=== PATIENT | female | born 1975 | race African-American/Black ===

== ENCOUNTER 2018-05-30 11:01 | Emergency (ER) | payer BC ==
[2018-05-30 11:14] VITALS: BP 126/88
--- NOTE | 2018-05-30 12:07 | UC ---
UC General HPI - HPI Summary HPI Summary: Patient has had 3 days of left arm pain that she awoke with does not change with activity, no nausea, vomiting, fatigue, SOB - History of Current Complaint Chief Complaint: UCGeneralIllness Stated Complaint: HIGH BLOOD PRESSURE, AND ARM PAIN Time Seen by Provider: 05/30/18 11:58 Hx Obtained From: Patient Hx Last Menstrual Period: 07/15/15 Onset/Duration: Gradual Onset, Lasting Days - 3 Timing: Constant Onset Severity: Mild Current Severity: Mild Pain Intensity: 3 Pain Location at: left trap. muscles in neck radiating in to shoulder and arm - Allergy/Home Medications Allergies/Adverse Reactions: Allergies Allergy/AdvReac Type Severity Reaction Status Date / Time Sulfa (Sulfonamide Allergy See Comment Verified 05/30/18 11:14 Antibiotics) Home Medications: Home Medications NK [No Home Medications Reported] 05/30/18 [History Confirmed 05/30/18] PMH/Surg Hx/FS Hx/Imm Hx Previously Healthy: Yes - Surgical History Surgical History: Yes Surgery Procedure, Year, and Place: D+C - Family History Known Family History: Positive: None - Social History Occupation: Employed Full-time Lives: With Family Alcohol Use: None Substance Use Type: None Smoking Status (MU): Never Smoked Tobacco Household Exposure Type: Cigarettes Review of Systems Constitutional: Negative Skin: Negative Eyes: Negative ENT: Negative Respiratory: Negative Cardiovascular: Negative Gastrointestinal: Negative Genitourinary: Negative Motor: Negative Neurovascular: Negative Musculoskeletal: Negative Neurological: Negative Psychological: Negative Is Patient Immunocompromised?: No All Other Systems Reviewed And Are Negative: Yes Physical Exam Triage Information Reviewed: Yes Appearance: Well-Appearing, No Pain Distress, Well-Nourished Vital Signs: Initial Vital Signs Temp 98.2 F 05/30/18 11:06 Pulse 82 05/30/18 11:06 Resp 18 05/30/18 11:06 BP 126/88 05/30/18 11:06 Pulse Ox 100 05/30/18 11:06 Vital Signs Reviewed: Yes Eye Exam: Normal Eyes: Positive: Conjunctiva Clear ENT Exam: Normal ENT: Positive: Normal ENT inspection, Hearing grossly normal, Pharynx normal, TMs normal. Negative: Nasal congestion, Nasal drainage, Trismus, Muffled voice , Hoarse voice Dental Exam: Normal Neck exam: Normal Neck: Positive: Supple, Nontender, No Lymphadenopathy Respiratory Exam: Normal Respiratory: Positive: Chest non-tender, Lungs clear, Normal breath sounds, No respiratory distress, No accessory muscle use Cardiovascular Exam: Normal Abdominal Exam: Normal Abdomen Description: Positive: Nontender, No Organomegaly, Soft Bowel Sounds: Positive: Present Musculoskeletal Exam: Normal Musculoskeletal: Positive: Strength Intact, ROM Intact, No Edema Neurological Exam: Normal Neurological: Positive: Alert, Muscle Tone Normal Psychological Exam: Normal Skin Exam: Normal Diagnostics - EKG Cardiac Rate: NL Cardiac Rhythm: Sinus: Normal Ectopy: None ST Segment: Normal Course/Dx - Course Course Of Treatment: reviewed case with Dr. Ivy mora d/c to home follow with pcp, to ED should symptoms return - Differential Dx - Multi-Symptom Provider Diagnoses: muscular skelatal pain left upper arm and shoulder Discharge - Sign-Out/Discharge Documenting (check all that apply): Patient Departure - Discharge Plan Condition: Stable Disposition: HOME Patient Education Materials: Neck Pain (ED), Warm Compress or Soak (ED) Referrals: Shabana Jennings MD [Medical Doctor] - 1 Week Additional Instructions: Per institutional requirements, I have reviewed the chart, however, I was not consulted specifically or made aware of this patient by the above midlevel provider. I did not personally evaluate, interact with , or disposition this patient. - Billing Disposition and Condition Condition: STABLE Disposition: Home
== END 2018-05-30 12:26 | disposition home or self-care (01) ==
LOC: UCEAST 11:01
DX: M79.622 Pain in left upper arm (principal); M25.512 Pain in left shoulder; Z88.2 Allergy status to sulfonamides
CPT/HCPCS: 93005; 99211; G0463

== ENCOUNTER 2019-02-10 14:26 | Emergency (ER) | payer BC ==
--- NOTE | 2019-02-10 14:29 | UC ---
Skin Complaint HPI - HPI Summary HPI Summary: 43 yo female presents with tick bite to right upper thigh noticed this morning. She removed the tick and called her doctor's office and they recommended she be evaluated. She is unsure how long the tick was attached for. No current symptoms - History of Current Complaint Time Seen by Provider: 02/10/19 14:27 Stated Complaint: TICK RT UPPER LEG Hx Obtained From: Patient Hx Last Menstrual Period: 07/15/15 Onset/Duration: Sudden Onset Current Severity: None - Allergy/Home Medications Allergies/Adverse Reactions: Allergies Allergy/AdvReac Type Severity Reaction Status Date / Time Sulfa (Sulfonamide Allergy See Comment Verified 02/10/19 14:37 Antibiotics) Home Medications: Home Medications Albuterol HFA INHALER* [Ventolin HFA Inhaler*] 1 puff INH Q4H PRN 02/10/19 [ History Confirmed 02/10/19] Cetirizine HCl [Zyrtec] 10 mg PO DAILY PRN 02/10/19 [History Confirmed 02/10/19] Ferrous Sulfate 325 mg PO BID 02/10/19 [History Confirmed 02/10/19] Fluticasone HFA 110 mcg(NF) [Flovent HFA 110 mcg(NF)] 1 puff INH BID 02/10/19 [ History Confirmed 02/10/19] PMH/Surg Hx/FS Hx/Imm Hx - Additional Past Medical History Additional PMH: None - Surgical History Surgical History: Yes Surgery Procedure, Year, and Place: D+C - Family History Known Family History: Positive: None - Social History Occupation: Employed Full-time Lives: With Family Alcohol Use: None Substance Use Type: None Smoking Status (MU): Never Smoked Tobacco Household Exposure Type: Cigarettes Review of Systems All Other Systems Reviewed And Are Negative: Yes Constitutional: Positive: Negative Skin: Positive: Other - Tick bite leg Respiratory: Positive: Negative Cardiovascular: Positive: Negative Neurovascular: Positive: Negative Neurological: Positive: Negative Psychological: Positive: Negative Physical Exam - Summary Physical Exam Summary: GENERAL: NAD. WDWN. No pain distress. SKIN: Right upper anterior thigh there is a 5mm diameter of mild erythema and edema with central 1mm area of superficial skin loss. No streaking, bleeding, or drainage. NECK: Supple. Nontender. No lymphadenopathy. CHEST: No accessory muscle use. Breathing comfortably and in no distress. CV: Pulses intact. Cap refill <2seconds NEURO: Alert. PSYCH: Age appropriate behavior. Triage Information Reviewed: Yes Vital Signs: Vital Signs: Temp Pulse Resp BP Pulse Ox 98.4 F 94 18 121/84 100 02/10/19 14:33 02/10/19 14:33 02/10/19 14:33 02/10/19 14:33 02/10/19 14:33 Vital Signs Reviewed: Yes Course/Dx - Course Course Of Treatment: Tick bite right upper thigh. Pt removed tick herself. She was treated with 200mg doxycycline in the clinic and advised to monitor for signs/symptoms of lyme. Bite site consistent with tick bite and localized skin reaction. No EM rash. - Diagnoses Provider Diagnosis: Tick bite Discharge - Sign-Out/Discharge Documenting (check all that apply): Patient Departure All imaging exams completed and their final reports reviewed: No Studies - Discharge Plan Condition: Stable Disposition: HOME Patient Education Materials: Tick Bite (ED) Referrals: Lady Salgado NP [Primary Care Provider] - Additional Instructions: TICK BITE: You have been bitten by a tick. Once the tick is removed, these "bites" usually cause no problems. Tick fever, tick paralysis, Rowley Spotted fever, and Lyme disease are uncommon -- but you should mention this tick bite to your doctor if you develop unusual symptoms in the next several weeks. If you develop any of the following, please see your physician promptly: (1) Fever, chills, or generalized malaise associated with a headache. (2) A red round area at the site of the bite (or elsewhere) (3) Joint pain, joint swelling or generalized weakness. (4) Redness, swelling, or drainage at the site of the bite. - Billing Disposition and Condition Condition: STABLE Disposition: Home - Attestation Statements Provider Attestation: I was available for consult. This patient was seen by the JEROME. The patient was not presented to , seen by or examined by -Trisha Harvey MD
--- OUTSIDE RECORDS SUMMARY | 2019-02-10 14:33 | XMS REPORT | Continuity of Care Document ---
:1975 External Reference #:[id number] Author Name Michafran Hamida Care Team Providers Name Role Phone Keke Llanos MD Primary Care Physician Unavailable Payers Date Identification Numbers Payment Provider Subscriber Policy Number: [id number] [employer] Ree Moreno PayID: [id number] [address] [address] [place] [address] Expires: 2016 Policy Number: [id number] Medicaid Ree Moreno Group Name: [id number] [address] PayID: [id number] [place] [address] Advance Directives Type Date Description Status Comment Other Directive 01/18/2017 Health Care Proxy Current and Verified Problems Date Description Provider Status Onset: 08/19/2015 Asthma Maxwell Cuevas NP Active Family History Date Family Member(s) Observation Comments Father Hypertension Father due to Stroke () - Age 54 Mother Migraine HTN Age 66 Children 7 5 daughters 2 sons (Has 3 of her own, the rest adopted). Siblings 2 Sisters. 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 Smoking Status Reviewed: 01/25/19 Social smoker from age [age]. Exercise Type/Frequency Does not exercise Allergies, Adverse Reactions, Alerts Date Description Reaction Status Severity Comments 08/19/2015 Sulfa Antibiotics Active Medications Medication Date Status Form Strength Qnty SIG Indications Ordering Provider Fluconazole 01/26/20 Active Tablets 150mg 2tabs one by N77.1 Lady 19 mouth may Varn, repeat in N.P. 3 days as needed Ferrousul 01/26/20 Active Tablets 325(65Fe) 60tab one po G25.81 Lady 19 mg s bid Varn, N.P. Nasonex 02/03/20 Active Suspension 50mcg/Act 17gm use 2 Lady 18 sprays in Varn, each N.P. nostril daily Clobetasol 01/23/20 Active Foam 0.05% 50gm apply L20.84 Lady Propionate 18 twice a Varn, day until N.P. rash clears up to 2 weeks, off for 2 weeks and repeat as needed for eczema Ventolin HFA 01/31/20 Active Aerosol 108(90Bas 8gm 1-2 puffs J01.00 Lady 17 e) by mouth Varn, mcg/Act every 4-6 N.P. hours a day as needed Triamcinolone 01/19/20 Active Lotion 0.1% 60ml apply to R21 Lady Acetonide 17 dry skin Varn, once or N.P. twice daily Flovent HFA 01/19/20 Active Aerosol 110mcg/Ac 1unit 2 puffs J45.30 Lady 17 t s twice Varn, daily N.P. Vitamin D 01/17/20 Active Tablets 1000Unit 30tab once a Will (Cholecalciferol 17 s day Mozambican, ) VALVE [employer]ER RUBBER Fluticasone 01/26/20 Hx Suspension 50mcg/Act 16uni 2 sprays J01.00 Lady Propionate 18 - ts each Varn, 02/03/20 nostril N.P. 18 daily as needed Cetirizine HCL 01/23/20 Hx Tablets 10mg 30tab 1 by J30.9 Lady 18 - s mouth Varn, Unknown every day N.P. Clobetasol 01/23/20 Hx Cream 0.05% 60gm apply to L20.84 Lady Propionate E 18 - affected Varn, 01/23/20 areas N.P. 18 twice a day for up to 2 weeks, off 2 weeks and repeat as needed. Fluconazole 01/23/20 Hx Tablets 150mg 2tabs one by Z01.419 Lady 18 - mouth may Varn, Unknown repeat in N.P. 3 days as needed Amoxicillin/Clav 01/31/20 Hx Tablets 875-125mg 20tab take one J01.90 Maxwell ulanate 17 - s tablet BHASKAR Cuevas Potassium 02/10/20 q12 hours 17 for 10 days Fluconazole 01/31/20 Hx Tablets 150mg 3tabs one by J01.90 Maxwell 17 - mouth may BHASKAR Cuevas 02/09/20 repeat 17 every 3 days as needed Breo Ellipta 12/27/19 Hx Aerosol 100-25mcg 1unit 1 puff 1x Virginia 16 - /Inh s per day Jarrod 01/17/20 Fidelina 17 Medrol (Pablo) 12/25/19 Hx Tablets 4mg 21tab take 6 M25.512 Maxwell 16 - s tabs day BHASKAR Cuevas 01/03/20 1, 5 tabs 16 day 2, 4 tabs day 3, 3 tabs day 4, 2 tabs day 5, and 1 tab day 6. Ondansetron 12/25/19 Hx Tablets 4mg 30tab dissolve R11.2 Maxwell 16 - Dispers s one BHASKAR Cuevas 01/03/20 tablet 16 orally every 8 hours as needed for nausea. Amoxicillin/Clav 12/08/19 Hx Tablets 875-125mg 20tab one J01.00 Lady ulanate 16 - s tablet by Damian, Potassium 12/18/19 mouth N.P. 16 twice daily for 10 days Fluticasone 12/08/19 Hx Suspension 50mcg/Act 16uni 2 sprays J01.00 Lady Propionate 16 - ts each Damian, 12/22/19 nostril N.P. 16 daily as needed Fluconazole 12/08/19 Hx Tablets 150mg 3tabs one by J01.00 Lady 16 - mouth Varn, 12/25/19 every 3 N.P. 16 days Proair HFA 12/08/19 Hx Aerosol 108(90Bas 25.5g 1 to 2 J01.00 Will 16 - e) m inhalatio Mozambican, 01/31/20 mcg/Act ns every VALVE [employer]ER RUBBER 17 4 hours as needed Vitamin D 08/19/20 Hx once a Maxwell 15 - day BHASKAR Cuevas 01/17/20 17 Medrol (Pablo) 08/19/20 Hx Tablets 4mg 21tab take 6 M99.08 Maxwell 15 - s tabs day BHASKAR Cuevas 08/27/20 1, 5 tabs 15 day 2, 4 tabs day 3, 3 tabs day 4, 2 tabs day 5, and 1 tab day 6. Cyclobenzaprine 08/19/20 Hx Tablets 5mg 30tab take one M99.08 Maxwell HCL 15 - s tablet by BHASKAR Cuevas 08/27/20 mouth 15 every 8 hours prn. may take a second tablet if first not effetive. Montelukast Hx Tablets 10mg once a Unknown Sodium 00 - day 12/08/19 16 19 Hx Tablets 29-1mg once a Unknown 00 - day 04/19/20 16 Ventolin HFA Hx Aerosol 108(90Bas 1unit 2 puffs q Mark - e) s 4-6 hour Rosario, 12/08/19 mcg/Act as needed M.D. 16 Iron Hx once a Unknown - day 04/19/20 16 Immunizations CPT Code Status Date Vaccine Lot # [id number] Given 08/21/2017 Influenza Virus Vaccine, Quadrivalent, Split, Preservative Free Vital Signs Date Vital Result Comment 01/25/2019 2:19pm Height 64 inches 5'4" Weight 182.00 lb Heart Rate 87 /min BP Systolic Sitting 120 mmHg BP Diastolic Sitting 82 mmHg Respiratory Rate 16 /min O2 % BldC Oximetry 97 % BMI (Body Mass Index) 31.2 kg/m2 01/22/2018 2:59pm Height 64 inches 5'4" Weight 173.75 lb Heart Rate 88 /min BP Systolic 124 mmHg BP Diastolic 84 mmHg Body Temperature 99.1 F O2 % BldC Oximetry 98 % BMI (Body Mass Index) 29.8 kg/m2 01/30/2017 2:17pm Weight 170.00 lb with shoes Heart Rate 65 /min BP Systolic 132 mmHg BP Diastolic 94 mmHg Body Temperature 98.1 F O2 % BldC Oximetry 98 % 01/18/2017 1:23pm Height 67 inches 5'7" Weight 171.00 lb Heart Rate 91 /min BP Systolic Sitting 116 mmHg BP Diastolic Sitting 80 mmHg Body Temperature 97.9 F O2 % BldC Oximetry 98 % BMI (Body Mass Index) 26.8 kg/m2 01/16/2017 1:38pm Height 63.5 inches 5'3.50" Weight 171.12 lb Heart Rate 79 /min BP Systolic Sitting 136 mmHg BP Diastolic Sitting 86 mmHg Body Temperature 98.3 F O2 % BldC Oximetry 98 % BMI (Body Mass Index) 29.8 kg/m2 04/19/2016 2:43pm Weight 170.00 lb Heart Rate 88 /min BP Systolic Sitting 152 mmHg BP Diastolic Sitting 100 mmHg Body Temperature 98.7 F O2 % BldC Oximetry 98 % 12/25/2015 1:17pm Weight 169.00 lb Heart Rate 89 /min BP Systolic Sitting 122 mmHg BP Diastolic Sitting 78 mmHg Body Temperature 97.9 F Pain Level 5 O2 % BldC Oximetry 98 % 12/08/2015 11:28am Weight 168.00 lb Heart Rate 94 /min BP Systolic Sitting 128 mmHg BP Diastolic Sitting 90 mmHg Body Temperature 99.2 F O2 % BldC Oximetry 97 % 08/19/2015 12:56pm Height 63 inches 5'3" Weight 158.00 lb Heart Rate 71 /min BP Systolic Sitting 98 mmHg BP Diastolic Sitting 64 mmHg Body Temperature 96.4 F Pain Level 0 O2 % BldC Oximetry 98 % BMI (Body Mass Index) 28.0 kg/m2 Results Test Date Facility Test Result H/L Range Note Laboratory test 01/22/2018 [facility] [place] Cytology SEE RESULT [address] [place] [address] [phone] Lipid Profile 01/18/2018 [facility] [place] Triglycerides 50 mg/dL 2 (Trig/Chol/HDL) [address] [place], [place] [id number] [phone] Cholesterol 149 mg/dL 3 HDL Cholesterol 54.4 mg/dL 4 LDL Cholesterol 85 mg/dL 5 Laboratory test 01/18/2018 [facility] [place] Glucose 83 mg/dL N 70- 100 [address] [place] [address] [phone] Laboratory test 02/03/2017 [facility] [place] Poc , Negative N Negative [address] [place] [address] [phone] Laboratory test 01/30/2017 [facility] A neg finding Strep Lipid Profile 01/16/2017 [facility] [place] Triglycerides 57 mg/dL N 8 (Trig/Chol/HDL) [address] [place], [place] [id number] [phone] Cholesterol 149 mg/dL N 9 HDL Cholesterol 49.0 mg/dL N 10 LDL Cholesterol 89 mg/dL N 11 Laboratory test finding 01/16/2017 [facility] [place] Glucose 81 mg/dL N 70-[address] [place] [address] [phone] 1 SEE RESULT BELOW Name: REE MORENO : [address]: Lady Salgado NP Acct: [id number] Unit: [id number] AGE: 42 Location: [facility] Re01/22/18 SEX: F Status: REG REF SPEC: [id number] DANIEL: 01/22/18-[address] [facility] [address]: Lady Salgado NP REQ: [id number] RECD: 01/22/18 STATUS: SOUT _ ORDERED: TP IMAGE ANAL, HPV/Thin Prep, HPV 16/18 GENE COMMENTS: [id number] Negative for Intraepithelial lesion or Malignancy A. Ectocervical/Endocervical Specimen Adequacy: Satisfactory of evaluation Transformation zone component identified Patient Information: HPV: High risk HPV RNA testing regardless of pap results. HPV 16/18 Genotype Reflex Actual Specimen Date: 01/22/18 Spec Date if unknown: 2013 ?: N Post Menopausal?: N Hysterectomy?: N Previous Abnormal Pap Smears?:N Date Time Test Result Flag (u) Normal Range 01/22/18 1627 @ HPV RNA RFLX GE Negative Negative @ @ The high-risk HPV types detected by the assay include: 16, @ 18, 31, 33, 35, 39, 45, 51, 52, 56, 58, 59, 66, and 68. Signed (signature on file) KELLY Washington (ASCP) 01/24 1017 This Pap test was evaluated with the assistance of the [employer] Test Imaging System. Due to cytologic findings at the director veterinary microscope, comprehensive manual rescreening by a Wild Animal Caretaker may be required. The Pap Smear is a screening test designed to aid in the detection of premalignant and malignant conditions of the uterine cervix. It is not a diagnostic procedure and should not be used as the sole means of detecting cervical cancer. Both false- positive and false- negative reports do occur. Depending on your risk status, a Pap smear should be obtained and evaluated every 1-3 years. END OF REPORT DEPARTMENT OF PATHOLOGY, [address] [place] [id number] Shan Fraser M.D. Director [facility] # [id number] 2 Desirable: <150 Borderline High: 150-199 High: 200-499 Very High: >500 3 Desirable: <200 Borderline High: 200-239 High: >239 4 Low: <40 Desirable: 40-60 High: >60 5 Desirable: <100 Near Optimal: 100-129 Borderline High: 130-159 High: 160-189 Very High: >189 6 FASTING 10 HOUR 7 Forming Department Supervisor: [id number] If is still suspected, please repeat test after 48 to 72 hours. 8 Desirable <150 Borderline high 150-199 High 200-499 Very High >500 9 Desirable <200 Borderline high 200-239 High >239 10 Low <40 Desirable: 40-60 High: >60 11 Desirable: <100 mg/dL Near Optimal: 100-129 mg/dL Borderline High: 130-159 mg/dL High: 160-189 mg/dL Very High: >189 mg/dL 12 FASTING 12 HOUR Procedures Date Code Description Status 02/09/2018 04291802 Mammogram Completed 02/03/2017 [id number] Mammogram Completed 07/20/2015 [id number] Mammogram Completed 03/30/2015 10910 Spirometry Incl Graphic Record Completed Encounters Type Date Location Provider Dx Diagnosis Office Visit 01/22/2018 [facility] Lady Salgado, Z00.00 Encntr for 3:00p Medicine - N.P. 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 general adult Todd medical exam w abnormal findings R21 Rash and other nonspecific skin eruption J06.9 Acute upper respiratory infection, unspecified J45.30 Mild persistent asthma, uncomplicated N64.4 Mastodynia Office Visit 04/19/2016 2:40p [facility] Virginia Garay, J01.90 Acute sinusitis, Medicine - M.D. unspecified Todd Office Visit 12/25/2015 1:00p [facility] Maxwell Cuevas NP R19.7 Diarrhea, Medicine - unspecified Todd R11.2 Nausea with vomiting, unspecified M25.512 Pain in left shoulder Office Visit 12/08/2015 11:20a [facility] Lady Salgado, J01.00 Acute maxillary Medicine - N.P. sinusitis, Todd unspecified Office Visit 08/19/2015 1:00p [facility] Maxwell Cuevas NP M99.08 Segmental and Medicine - somatic Todd dysfunction of rib cage Plan of Treatment 01/25/2019 - Lady Salgado, N.P.Z00.00 Encounter for general adult medical examination without abnoComments:For your routine health maintenance: I encourage you to start up with exercise.You need to be getting between 1,000 - 1 ,200 mg of Calcium in daily. The best way to supplement what you get in your diet is to drink Calcium fortified orange juice. If you take a Calcium supplement be sure it has Vitamin Din it to help absorption. Your Tetanus immunization is up to date. You received this in 2012. It is good for 10 years unless you have a major injury, then it is good for 5 years.Z12.31 Encounter for screening mammogram for malignant neoplasm ofNew Xrays:Mammogram Screening Brian, Ordered: 01/25/19Comments:I have ordered your routine screening mammogram. The imaging department will give you your results at the time of your visit. I encourage you to do self exams. If you should notice any masses or thickening, please give the office a call.J45.30 Mild persistent asthma, uncomplicatedComments:For your asthma:I suggest you restart your inhaler. If at any point you find you need to use your rescue inhaler more than twice weekly on a regular basis, please call the office. This indicates your asthma is not adequately controlled.N77.1 Vaginitis, vulvitis and vulvovaginitis in diseases classifieNew Medication:Fluconazole 150 mg - one by mouth may repeat in 3 days as neededComments:I have sent a prescription in for Fluconazole 150 mg. If your symptoms do not improve, please contact the office.G25.81 Restless legs syndromeNew Medication:Ferrousul 325(65 Fe) mg - one po bidComments:To evaluate your restless legs I have ordered CBC, Ferritin, and Iron levels. I will contact you with your results. I suggest you start taking a multivitamin with iron.
[2019-02-10] MEDS ORDERED: DOXYcycline CAP(*) 100 MG PO ONE (14:34)
[2019-02-10 14:38] VITALS: BP 121/84
== END 2019-02-10 14:58 | disposition home or self-care (01) ==
LOC: UCEAST 14:26
DX: S70.361A Insect bite (nonvenomous), right thigh, initial encounter (principal); W57.XXXA Bitten or stung by nonvenomous insect and other nonvenomous arthropods, initial encounter; Y92.89 Other specified places as the place of occurrence of the external cause; Z88.2 Allergy status to sulfonamides
CPT/HCPCS: 99212; A9270-GY; G0463

== ENCOUNTER 2019-12-20 16:48 | Emergency (ER) | payer BC ==
--- OUTSIDE RECORDS SUMMARY | 2019-12-20 16:57 | XMS REPORT | Continuity of Care Document ---
:1975 External Reference #:[id number] Author Name Josias Cuevas JR, DO Address [address] [facility] [facility], [address] [place] [address] Problems Description No Information Available Social History Type Date Description Comments Sex Unknown Cigarette Use Former Cigarette Smoker ETOH Use Does Not Drink Alcohol Recreational Drug Use Denies Drug Use Exercise Type/Frequency Exercises regularly Seat Belt/Car Seat Always uses car seat Allergies, Adverse Reactions, Alerts Active Allergies Reaction Severity Comments Date Sulfa 11/23/2010 Medications Active Medications SIG Qnty Indications Ordering Provider Date Ferrous Sulfate 1 by mouth every Unknown 325(65Fe) day mg Tablets Immunizations Description No Information Available Vital Signs Date Vital Result Comment 12/05/2019 9:39am BP Systolic 128 mmHg BP Diastolic 68 mmHg Height 64 inches 5'4" Weight 177.00 lb BMI (Body Mass Index) 30.4 kg/m2 Last Menstrual Period [id number] Parity 3 12/04/2019 2:38pm BP Systolic 130 mmHg BP Diastolic 78 mmHg Height 64 inches 5'4" Weight 182.00 lb BMI (Body Mass Index) 31.2 kg/m2 Results Test Acquired Date Facility Test Result H/L Range Note Laboratory test 12/05/2019 Surgical <pending> [place] [address] Pathology [phone] Procedures Date Code Description Status 10/30/2018 [id number] Mammogram Completed Medical Devices Description No Information Available Encounters Type Date Location Provider Dx Diagnosis Office Visit 12/05/2019 [facility] Josias Cuevas JR, N93.9 Abnormal uterine and 9:30a DO vaginal bleeding, unspecified N84.0 Polyp of corpus uteri Assessments Date Code Description Provider 12/05/2019 N93.9 Abnormal uterine and vaginal bleeding, Josias Cuevas JR, DO unspecified 12/05/2019 N84.0 Polyp of corpus uteri Josias Cuevas JR, DO Plan of Treatment No Information Available Functional Status Description No Information Available Mental Status Description No Information Available Referrals Description No Information Available
--- OUTSIDE RECORDS SUMMARY | 2019-12-20 16:58 | XMS REPORT | Continuity of Care Document ---
:1975 External Reference #:[id number] Author Name Lady Salgado N.P. (transmitted by agent of provider Ariana Cain) Address [address] [facility], [place] [address] Care Team Providers Name Role Phone Keke Llanos MD - Internal Care Team Information Vehicle [employer] Medicine Problems Active Problems Provider Date Asthma Maxwell Cuevas NP Onset: 08/19/2015 Social History Type Date Description Comments Sex Unknown ETOH Use Denies alcohol use Tobacco Use Start: Unknown End: Patient is a former smoker Unknown Tobacco Use Start: Unknown Social smoker from age [age]. Smoking Status Reviewed: 10/24/19 Social smoker from age [age]. Exercise Type/Frequency Does not exercise Allergies, Adverse Reactions, Alerts Active Allergies Reaction Severity Comments Date Sulfa Antibiotics 08/19/2015 Medications Active Medications SIG Qnty Indications Ordering Provider Date Ferrous Sulfate 1 by mouth twice 60tabs Lady Varn, 01/30/2019 325(65Fe) a day N.P. mg Tablets DR Fluconazole one by mouth february 2tabs N77.1 Lady Varn, 01/25/2019 150mg Tablets repeat in 3 days N.P. as needed Ferrousul one po bid 60tabs G25.81 Lady Varn, 01/25/2019 325(65Fe) mg N.P. Tablets Nasonex use 2 sprays in 17gm Lady Varn, 02/02/2018 50mcg/Act each nostril N.P. Suspension daily Clobetasol Propionate apply twice a 50gm L20.84 Lady Varn, 01/22/2018 day until rash N.P. 0.05% Foam clears up to 2 weeks, off for 2 weeks and repeat as needed for eczema Ventolin HFA 1-2 puffs by 8gm J01.00 Lady Salgado, 01/30/2017 108(90Base) mouth every 4-6 N.P. mcg/Act Aerosol hours a day as needed Triamcinolone apply to dry 60ml R21 Lady Salgado, 01/18/2017 Acetonide skin once or N.P. 0.1% Lotion twice daily Flovent HFA 2 puffs twice 1units J45.30 Lady Salgado, 01/18/2017 110mcg/Act daily N.P. Aerosol Vitamin D once a day 30tabs Will Zhou NP 01/16/2017 (Cholecalciferol) 1000Unit Tablets Immunizations CPT Code Status Date Vaccine Lot # [id number] Given 08/08/2019 Influenza Virus Vaccine, Quadrivalent, Split, Preservative Free [id number] Given 08/21/2017 Influenza Virus Vaccine, Quadrivalent, Split, Preservative Free Vital Signs Date Vital Result Comment 10/24/2019 10:57am Height 64 inches 5'4" Weight 182.38 lb Heart Rate 98 /min BP Systolic Sitting 130 mmHg BP Diastolic Sitting 78 mmHg Body Temperature 97.4 F O2 % BldC Oximetry 95 % BMI (Body Mass Index) 31.3 kg/m2 01/25/2019 2:19pm Height 64 inches 5'4" Weight 182.00 lb Heart Rate 87 /min BP Systolic Sitting 120 mmHg BP Diastolic Sitting 82 mmHg Respiratory Rate 16 /min O2 % BldC Oximetry 97 % BMI (Body Mass Index) 31.2 kg/m2 Results Description No Information Available Procedures Date Code Description Status 02/09/2018 [id number] Mammogram Completed 02/03/2017 [id number] Mammogram Completed 07/20/2015 [id number] Mammogram Completed Medical Devices Description No Information Available Encounters Description No Information Available Assessments Date Code Description Provider 10/24/2019 N92.4 Excessive bleeding in the premenopausal period Lady Salgado N.P. 10/24/2019 M79.662 Pain in left lower leg Lady Salgado N.PIvan Plan of Treatment 10/24/2019 - Lady Salgado N.OscarN92.4 Excessive bleeding in the premenopausal periodNew Xrays:US Transvaginal, Ordered: 10/24/19Comments:To further evaluate your pain and heavy bleeding I have ordered blood work and a transvaginal ultrasound.Start taking your iron supplement again.M79.662 Pain in left lower legNew Xrays:VL Lower Ext Veins Left, Ordered: 10/24/19Comments:To further evaluate your leg pain I have ordered an ultrasound to rule out a blood clot. The imagingdepartment will have you wait there and speak to someone in the office to discuss your results. Functional Status Description No Information Available Mental Status Description No Information Available Referrals Description No Information Available
[2019-12-20 17:14] VITALS: BP 132/85
[2019-12-20 17:44] LABS: Influenza A Molecular POSITIVE (Negative)
[2019-12-20] MEDS ORDERED: Ondansetron ODT TAB* 4 MG PO ONE (18:15)
[2019-12-20] MEDS ORDERED: Ibuprofen TAB* 600 MG PO ONE (18:15)
--- NOTE | 2019-12-20 18:16 | UC ---
FLU HPI - HPI Summary HPI Summary: 44-year-old woman comes in with a chief complaint of influenza-like symptoms for 1 day. She has headache fevers chills cough chest congestion and rhinorrhea bodyaches. She tried to take some acetaminophen last night she threw up. She has been drinking a lot of water since been urinating a lot. 5 days ago she had a migraine headache that went away after a day. Patient's wondering if she has a sinus infection because her rhinorrhea is green. Denies any sore throat. - History of Current Complaint Chief Complaint: UCGeneralIllness Stated Complaint: HEADACHE, COUGH Time Seen by Provider: 12/20/19 18:03 Hx Last Menstrual Period: 12/10/19 Pain Intensity: 8 - Allergy/Home Medications Allergies/Adverse Reactions: Allergies Allergy/AdvReac Type Severity Reaction Status Date / Time Sulfa (Sulfonamide Allergy See Comment Verified 12/20/19 17:12 Antibiotics) Home Medications: Home Medications Albuterol HFA INHALER* [Ventolin HFA Inhaler*] 1 puff INH Q4H PRN 02/10/19 [ History Confirmed 12/20/19] Ferrous Sulfate 325 mg PO BID 02/10/19 [History Confirmed 12/20/19] Fluticasone HFA 110 mcg(NF) [Flovent HFA 110 mcg(NF)] 2 puff INH BID 02/10/19 [ History Confirmed 12/20/19] Amoxicillin PO (*) [Amoxicillin 875 MG (*)] 875 mg PO BID #20 tab 12/20/19 [Rx] Ascorbic Acid [Vitamin C] 1 tab PO ONCE PRN 12/20/19 [History Confirmed 12/20/19 ] Ondansetron ODT TAB* [Zofran 4 MG Odt TAB*] 4 mg PO Q6H PRN #10 tab.odt [Rx] Oseltamivir CAP* [Tamiflu CAP*] 75 mg PO BID #10 cap 12/20/19 [Rx] PMH/Surg Hx/FS Hx/Imm Hx Previously Healthy: Yes - Surgical History Surgical History: Yes Surgery Procedure, Year, and Place: D+C - Family History Known Family History: Positive: None - Social History Alcohol Use: None Substance Use Type: None Smoking Status (MU): Never Smoked Tobacco Household Exposure Type: Cigarettes Review of Systems All Other Systems Reviewed And Are Negative: Yes Constitutional: Positive: Fever, Chills, Other - see hpi Skin: Positive: Negative Eyes: Positive: Negative ENT: Positive: Sore Throat, Nasal Discharge, Sinus Congestion, Sinus Pain/ Tenderness Respiratory: Positive: Cough, Other - see hpi Cardiovascular: Positive: Negative Gastrointestinal: Positive: Vomiting, Nausea Motor: Positive: Negative Neurovascular: Positive: Negative Musculoskeletal: Positive: Myalgia Neurological/Mental Status: Positive: Headache Psychological: Positive: Negative Is Patient Immunocompromised?: No Physical Exam Triage Information Reviewed: Yes Appearance: No Pain Distress, Well-Nourished, Ill-Appearing - mild Vital Signs: Initial Vital Signs Temp 99.6 F 12/20/19 17:09 Pulse 99 12/20/19 17:09 Resp 18 12/20/19 17:09 BP 132/85 12/20/19 17:09 Pulse Ox 99 12/20/19 17:09 Vital Signs Reviewed: Yes Eye Exam: Normal Eyes: Positive: Conjunctiva Clear ENT: Positive: Pharynx normal, Nasal congestion, Nasal drainage, TMs normal Neck: Positive: Supple Respiratory: Positive: Lungs clear, Normal breath sounds, No respiratory distress Cardiovascular: Positive: RRR Musculoskeletal: Positive: Strength Intact, ROM Intact Neurological: Positive: Alert, Muscle Tone Normal Psychological: Positive: Age Appropriate Behavior Skin Exam: Normal Flu Course/Dx - Course Course Of Treatment: We'll treat with Zofran to help the nausea so that the patient can take over-the -counter medicine such as ibuprofen and Tylenol for the symptoms. Also will treat with Tamiflu. Patient's concerned that she has a sinus infection due to the headache 5 days ago and green rhinorrhea and prefers to be on antibiotics at this time therefore I prescribed amoxicillin. Patient's to get reevaluated if not improving or worsening course concerns. - Differential Dx/Diagnosis Provider Diagnosis: Influenza, Sinusitis Discharge ED - Sign-Out/Discharge Documenting (check all that apply): Patient Departure All imaging exams completed and their final reports reviewed: No Studies - Discharge Plan Condition: Stable Disposition: HOME Prescriptions: Amoxicillin PO (*) [Amoxicillin 875 MG (*)] 875 mg PO BID #20 tab Ondansetron ODT TAB* [Zofran 4 MG Odt TAB*] 4 mg PO Q6H PRN #10 tab.odt PRN Reason: Nausea/Vomiting Oseltamivir CAP* [Tamiflu CAP*] 75 mg PO BID #10 cap Patient Education Materials: Sinusitis (ED), Influenza (ED) Forms: *Work Release Referrals: Lady Salgado NP [Primary Care Provider] - Additional Instructions: FOLLOW UP WITH YOUR DOCTOR IF NOT COMPLETELY IMPROVED. GET REEVALUATED SOONER IF NOT IMPROVED OR WORSE OR ANY QUESTIONS OR CONCERNS. - Billing Disposition and Condition Condition: STABLE Disposition: Home
== END 2019-12-20 18:35 | disposition home or self-care (01) ==
LOC: UCEAST 16:48
DX: J11.1 Influenza due to unidentified influenza virus with other respiratory manifestations (principal); J32.9 Chronic sinusitis, unspecified; Z88.2 Allergy status to sulfonamides
CPT/HCPCS: 99212; A9270-GY; G0463

== ENCOUNTER 2021-03-08 12:19 | Observation (INO) ==
[2021-03-08 12:54] LABS: ABS Eosinophils 0.1 10^3/ul (0-0.6); ABS Lymphocytes 2.3 10^3/ul (1.0-4.8); ABS Monocytes 0.9 10^3/ul (0-0.8); Eosinophil % 0.4 %; Hematocrit 35 % (35-47); Hemoglobin 11.3 g/dL (12.0-16.0); Lymphocyte % 16.3 %; Mean Corpuscular HGB Conc 32 g/dL (31-36); Mean Corpuscular Hemoglobin 28 pg (27-31); Mean Corpuscular Volume 86 fL (80-97); Mean Platelet Volume 7.9 fL (7.4-10.4); Nucleated Red Blood Cells % 0.1; Platelet Count 359 10^3/uL (150-450); Red Blood Count 4.11 10^6 /uL (3.70-4.87); Red Cell Distribution Width 17 % (10-15); White Blood Count 14.4 10^3/uL (3.5-10.8)
[2021-03-08 13:12] LABS: INR 0.99 (0.82-1.09)
[2021-03-08 13:34] LABS: ALT 12 U/L (7-52); AST 11 U/L (13-39); Albumin 3.7 g/dL (3.2-5.2); Albumin/Globulin Ratio 1.3 (1-3); Alkaline Phosphatase 65 U/L (34-104); Anion Gap 5 mmol/L (2-11); Blood Urea Nitrogen 13 mg/dL (6-24); CO2 Carbon Dioxide 28 mmol/L (22-32); Calcium 8.9 mg/dL (8.6-10.3); Chloride 104 mmol/L (101-111); EGFR African American 95.7 (>60); EGFR Non-African American 79.1 (>60); Globulin 2.8 g/dL (2-4); Glucose 83 mg/dL (70-100); Potassium 3.4 mmol/L (3.5-5.0); Sodium 137 mmol/L (135-145); Total Protein 6.5 g/dL (6.4-8.9)
[2021-03-08 13:47] LABS: Troponin I 0.04 ng/mL (<0.03)
[2021-03-08] MEDS ORDERED: Albuterol HFA INHALER 8 gm MDI INH PRN (15:52)
[2021-03-08] MEDS ORDERED: Enoxaparin 40 MG/0.4 ML SYR SUBCUT SCH (17:00)
[2021-03-08] MEDS: Potassium Chlor 20 meq TAB.ER PO SCH ×2 (17:46→21:11)
[2021-03-08 18:03] LABS: Cholesterol 164 mg/dL; HDL Cholesterol 57.9 mg/dL; LDL Cholesterol 92 mg/dL; Triglycerides 72 mg/dL
[2021-03-08] MEDS ORDERED: Polyethylene Glycol 3350 17 GM PACKET PO ONE (22:09)
[2021-03-09] MEDS ORDERED: Aspirin EC 81 mg TAB.EC (enteric coated) PO SCH (09:00)
[2021-03-09] MEDS ORDERED: Fluticasone NASAL SPRAY 50MCG 16 gm SPRAY BTL BOTH NARES SCH (09:00)
[2021-03-09] MEDS ORDERED: Perflutren Lipid Microsphere 3 ML VIAL ONE (10:58)
[2021-03-09 11:25] VITALS: BP 120/78
[2021-03-09 15:00] LABS: ABS Lymphocytes 1.6 10^3/ul (1.0-4.8); ABS Monocytes 1.1 10^3/ul (0-0.8); ABS Neutrophils 16.9 10^3/ul (1.5-7.7); Eosinophil % 0.2 %; Hematocrit 34 % (35-47); Hemoglobin 11.2 g/dL (12.0-16.0); Lymphocyte % 8.3 %; Mean Corpuscular HGB Conc 33 g/dL (31-36); Mean Corpuscular Hemoglobin 28 pg (27-31); Mean Corpuscular Volume 85 fL (80-97); Mean Platelet Volume 7.8 fL (7.4-10.4); Platelet Count 365 10^3/uL (150-450); Red Blood Count 4.04 10^6 /uL (3.70-4.87); Red Cell Distribution Width 17 % (10-15); White Blood Count 19.7 10^3/uL (3.5-10.8)
[2021-03-09 15:46] LABS: Calcium 8.7 mg/dL (8.6-10.3); EGFR African American 95.7 (>60); EGFR Non-African American 79.1 (>60); Magnesium 1.9 mg/dL (1.9-2.7); Potassium 3.7 mmol/L (3.5-5.0)
== END 2021-03-09 18:16 | disposition home or self-care (01) ==
LOC: EDACCT# → MEDTELE 12:19 → ED 12:19 → MEDTELE 16:39
PROVIDERS: ADMIT Internal Medicine; ATTEND Internal Medicine